=== PATIENT | female | born 1955 | race Caucasian/White ===

== ENCOUNTER 2017-08-02 16:32 | Emergency (ER) | payer BC ==
--- NOTE | 2017-08-02 17:49 | ER Document Report ---
ED Medical Screen (RME) - General TRAVEL OUTSIDE OF THE [place] IN LAST 30 DAYS: No <NILSONNANNETTE Dick - Last Filed: 08/02/17 17:44> - General Information source: Patient <CLAUS FRANZ - Last Filed: 08/02/17 17:55> - General Chief Complaint: Syncope Stated Complaint: FALL,LEG PAIN Time Seen by Provider: 08/02/17 17:35 Notes: Patient presents for chief concern of being found on the ground earlier this morning approximately 6 AM by her . He heard her snoring in the family room and states that it was hard to arouse her. Apparently, EMS was called and performed a stroke scale which was negative. She presents to the emergency department this afternoon due to concerns of amnesia events she does not remember going into the room last night. The last thing she remembers is going to the restroom. She also had an amnesia event approximately June 13 when they were driving from [place] as they recently moved. No recent illnesses cough congestion fevers chest pain or shortness of breath. She does have a history of arthritis in her knees and states that her knees been hurting more than normal. She also normally gets cortisone shots every 3 months and her last shot was in April of last year. No history of heart attack or stroke. Of note, she does take Ambien on a daily basis. No history of dementia (NANNETTE DEVINE) - Related Data Allergies/Adverse Reactions: aspirin Allergy (Severe, Verified 08/02/17 17:18) Shortness of Breath Past Medical History - Social History Chew tobacco use (# tins/day): No Frequency of alcohol use: None Drug Abuse: None Renal/ Medical History: Denies: Hx Peritoneal Dialysis <NANNETTE DEVINE - Last Filed: 08/02/17 17:44> - General Information source: Patient - Social History Chew tobacco use (# tins/day): No Frequency of alcohol use: None Drug Abuse: None <MARIA M,CLAUS - Last Filed: 08/02/17 17:55> Review of Systems - Review of Systems Respiratory: See HPI. denies: Cough Gastrointestinal: See HPI. denies: Abdominal pain Genitourinary: See HPI. denies: Dysuria Musculoskeletal: See HPI, Joint pain - bilateral knees for which she usually get cortisone Neurological/Psychological: See HPI, Other - temporary amnesia <CLAUS FRANZ - Last Filed: 08/02/17 17:55> Physical Exam - General General appearance: Appears well, Alert In distress: None - Respiratory Respiratory status: No respiratory distress - Extremities General upper extremity: Normal inspection, Normal ROM General lower extremity: Tender, Normal ROM - Neurological Neuro grossly intact: Yes Cognition: Normal Orientation: AAOx4 [place] Coma Scale Verbal: Oriented [place] Coma Scale Motor: Obeys Commands Speech: Normal Cranial nerves: Normal Cerebellar coordination: Normal Motor strength normal: LUE, RUE, LLE, RLE Additional motor exam normals: Equal coordinating producer - Psychological Associated symptoms: Normal affect, Normal mood - Skin Skin Temperature: Warm Skin Moisture: Dry Skin Color: Normal <CLAUS FRANZ - Last Filed: 08/02/17 17:55> - Vital signs Vitals: Temp Pulse BP Pulse Ox 98.1 F 123 H 137/81 H 96 08/02/17 16:41 08/02/17 16:41 08/02/17 16:41 08/02/17 16:41 - Vital Signs Vital signs: Temp Pulse Resp BP Pulse Ox 98.1 F 123 H 137/81 H 96 08/02/17 16:41 08/02/17 16:41 08/02/17 16:41 08/02/17 16:41 Scribe Documentation - Scribe Written by Dionne:: Dionne Lloyd 08/02/17 0562 acting as scribe for :: Nilson <CLAUS FRANZ - Last Filed: 08/02/17 17:55>
[2017-08-02 18:15] LABS: ABSOLUTE EOSINOPHILS # (AUTO) 0.1 10^3/uL (0.0-0.6); ABSOLUTE LYMPHOCYTES (AUTO) 1.8 10^3/uL (0.5-4.7); ABSOLUTE MONOCYTES (AUTO) 0.7 10^3/uL (0.1-1.4); ABSOLUTE NEUT (AUTO) 6.5 10^3/uL (1.7-8.2); BASOPHILS % (AUTO) 0.5 % (0-2); EOSINOPHILS % (AUTO) 0.7 % (0-6); HEMATOCRIT 38.8 % (36.0-47.0); HEMOGLOBIN 12.2 g/dL (12.0-15.5); LYMPHOCYTES % (AUTO) 19.5 % (13-45); MEAN CORPUSCULAR HEMOGLOBIN 25.2 pg (27.0-33.4); MEAN CORPUSCULAR HGB CONC 31.4 g/dL (32.0-36.0); MEAN CORPUSCULAR VOLUME 80 fl (80-97); MONOCYTES % (AUTO) 7.7 % (3-13); PLATELET COUNT 223 10^3/uL (150-450); RED BLOOD COUNT 4.83 10^6/uL (3.72-5.28); RED CELL DISTRIBUTION WIDTH 16.2 % (11.5-14.0); SEGMENTED NEUTROPHILS % (AUTO) 71.6 % (42-78); TOTAL CELLS COUNTED % (AUTO) 100 %; WHITE BLOOD COUNT 9.1 10^3/uL (4.0-10.5)
[2017-08-02 18:17] LABS: APPEARANCE,URINE CLEAR; BILIRUBIN,URINE NEGATIVE (NEGATIVE); COLOR,URINE YELLOW; GLUCOSE, URINE NEGATIVE (NEGATIVE); KETONES,URINE NEGATIVE (NEGATIVE); LEUKOCYTE ESTERASE,URINE NEGATIVE (NEGATIVE); NITRITE,URINE NEGATIVE (NEGATIVE); PROTEIN,URINE NEGATIVE (NEGATIVE); URINE SPECIFIC GRAVITY 1.017
[2017-08-02] MEDS ORDERED: NORMAL SALINE 1000 ML 1,000 ML IV ONE (18:28)
[2017-08-02 18:30] LABS: ALANINE AMINOTRANSFERASE 34 U/L (9-52); ALBUMIN 4.3 g/dL (3.5-5.0); ALKALINE PHOSPHATASE 124 U/L (38-126); ANION GAP 12 (5-19); ASPARTATE AMINO TRANSFERASE 45 U/L (14-36); BILIRUBIN,DIRECT 0.1 mg/dL (0.0-0.4); BILIRUBIN,TOTAL 0.6 mg/dL (0.2-1.3); BLOOD UREA NITROGEN 19 mg/dL (7-20); CALCIUM 9.5 mg/dL (8.4-10.2); CARBON DIOXIDE 25 mmol/L (22-30); CHLORIDE 103 mmol/L (98-107); GLUCOSE 89 mg/dL (75-110); POTASSIUM 4.4 mmol/L (3.6-5.0); SODIUM 139.9 mmol/L (137-145); TOTAL PROTEIN 6.4 g/dL (6.3-8.2)
--- NOTE | 2017-08-02 18:36 | RADIOLOGY REPORT (SQ) ---
EXAM DESCRIPTION: CT HEAD WITHOUT COMPLETED DATE/TIME: 08/02/2017 6:28 pm REASON FOR STUDY: amensia events COMPARISON: None. TECHNIQUE: Axial images acquired through the brain without intravenous contrast. Images reviewed wi th bone, brain and subdural windows. Images stored on PACS. All CT scanners at this facility use dose modulation, iterative reconstruction, and/or weight based d osing when appropriate to reduce radiation dose to as low as reasonably achievable (ALARA). [facility]: Dose Right [facility]: CareDose [facility]: Dose Right [facility]: Teradose 4D [facility]: [employer] RADIATION DOSE: CT Rad equipment meets quality standard of care and radiation dose reduction techniq ues were employed. CTDIvol: 64.6 mGy. DLP: 1034 mGy-cm. mGy. LIMITATIONS: None. FINDINGS: VENTRICLES: Normal size and contour. CEREBRUM: No masses. No hemorrhage. No midline shift. No evidence for acute infarction. Normal gra y/white matter differentiation. Age-appropriate white matter. CEREBELLUM: No masses. No hemorrhage. No alteration of density. No evidence for acute infarction. EXTRAAXIAL SPACES: No fluid collections. No masses. ORBITS AND GLOBE: No intra- or extraconal masses. Normal contour of globe without masses. CALVARIUM: No fracture. PARANASAL SINUSES: No fluid or mucosal thickening. SOFT TISSUES: No mass or hematoma. OTHER: No other significant finding. IMPRESSION: No acute intracranial findings. EVIDENCE OF ACUTE STROKE: NO. COMMENT: Quality ID # [id number]: Final reports with documentation of one or more dose reduction techniques (e.g., Automated exposure control, adjustment of the mA and/or kV according to patient size, use of iterative reconstruction technique) TECHNICAL DOCUMENTATION: JOB ID: [id number] [place]-72 2010 [employer]- All Rights Reserved Reading location - IP/workstation name: [email or web address]
[2017-08-02] MEDS ORDERED: LIDOCAINE 5% (700 MG) TRANSDERMAL ADH..PATCH TP ONE (19:17)
[2017-08-02] MEDS ORDERED: IBUPROFEN 600 MG TABLET PO ONE (19:17)
[2017-08-02] MEDS ORDERED: ACETAMINOPHEN 325 MG TABLET PO ONE (19:17)
--- NOTE | 2017-08-02 19:21 | ER Document Report ---
ED General - General Chief Complaint: Syncope Stated Complaint: FALL,LEG PAIN Time Seen by Provider: 08/02/17 17:35 Notes: Patient is a 62-year-old female with past medical history of morbid obesity, chronic gait instability, who presents for chief concern of being found on the ground earlier this morning approximately 6 AM by her . He heard her snoring in the family room and states that it was hard to arouse her. Apparently, EMS was called and performed a stroke scale which was negative. She presents to the emergency department this afternoon due to concerns of amnesia to the events of last night. Patient states that she has had very similar symptoms in the past secondary to Ambien including an episode early in June when they moved. The patient denies any significant pain except to her left knee to which she notes a severe, constant, aching pain which is worse than her baseline pain in the knee. States the pain is worsened by moving the knee. She states she took Tylenol with codeine at home and it did improve the pain that medication has since worn off. Patient is unsure whether or not she hit her head but she denies any headache, neck pain, focal weakness or numbness , or confusion at this time. Her at the bedside states that she is currently acting at her baseline. Patient does note a history of tachycardia baseline. TRAVEL OUTSIDE OF THE [place] IN LAST 30 DAYS: No - Related Data Allergies/Adverse Reactions: aspirin Allergy (Severe, Verified 08/02/17 17:18) Shortness of Breath Past Medical History - General Information source: Patient - Social History Smoking Status: Never Smoker Chew tobacco use (# tins/day): No Frequency of alcohol use: None Drug Abuse: None Lives with: Spouse/Significant other Family History: Reviewed & Not Pertinent Patient has suicidal ideation: No Patient has homicidal ideation: No Renal/ Medical History: Denies: Hx Peritoneal Dialysis Past Surgical History: Reports: Hx Abdominal Surgery - hernia repair, gastric bypass, Hx Cholecystectomy Review of Systems - Review of Systems Notes: Constitutional: Negative for fever. Eyes: Negative for visual changes. ENT: Negative for facial injury Cardiovascular: Negative for chest injury. Respiratory: Negative for shortness of breath. Gastrointestinal: Negative for abdominal injury. Genitourinary: Negative for genital injury Musculoskeletal: Positive for bilateral knee pain Skin: Positive for bruising Neurological: Positive for head injury. Physical Exam - Vital signs Vitals: Temp Pulse BP Pulse Ox 98.1 F 123 H 137/81 H 96 08/02/17 16:41 08/02/17 16:41 08/02/17 16:41 08/02/17 16:41 Interpretation: Tachycardic Notes: PHYSICAL EXAMINATION: GENERAL: Well-appearing, no acute distress. HEAD: Atraumatic, normocephalic. EYES: Pupils equal round and reactive to light, extraocular movements intact, sclera anicteric, conjunctiva are normal. ENT: nares patent, no oral pharyngeal trauma. No hemotympanum, no Saucedo's sign , no raccoon eyes. NECK: No midline cervical spine tenderness. Patient able to move their head to 45 bilaterally without any discomfort. LUNGS: Breath sounds clear to auscultation bilaterally and equal. No wheezes rales or rhonchi. HEART: Regular rate and rhythm without murmurs. CHEST WALL: No ecchymosis over the chest wall. ABDOMEN: Soft, nontender, normoactive bowel sounds. No guarding, no rebound. No known EXTREMITIES: Normal range of motion, no pitting or edema. Bruising along the medial aspect of the bilateral knees worse on the left. no long bone deformities. BACK: No midline spinal tenderness, step-offs, or deformities. NEUROLOGICAL: Face symmetric. Tongue protrudes midline. Extraocular motions intact. Pupils are 2 mm and equally reactive. Normal speech. 5 out of 5 strength in both the distal and proximal upper and lower extremities bilaterally. Sensation is grossly intact throughout. Finger to nose testing normal. Pronator drift normal. PSYCH: Moderately anxious SKIN: Warm, Dry, normal turgor, ecchymosis over the bilateral forearms and bilateral medial knees Course - Re-evaluation Re-evalutation: 08/02/17 19:21 Patient presents with signs and symptoms most consistent with ingestion of zolpidem. Patient has had similar adverse reactions to this medication in the past did take this medication last evening prior to being found in the floor and confused earlier today. She presents due to ongoing pain in her bilateral lower extremities specifically in the knees worse on the left versus the right. He notes that this feels similar to her chronic pain and feels that it was exacerbated likely from her fall. She has no deformity or limited range of motion. X-ray is negative for any acute fracture or dislocation. A CT of the head was obtained in triage and is noted to be unremarkable. Screening laboratories are also unremarkable. Patient's vitals were noted to be within normal limits with exception of tachycardia which appeared to be most notable and patient was in pain as when she was trying to shift her knees around the bed when I was in the examination room her heart rate from 103-143. Will provide analgesia and IV fluids. I do not suspect any acute life-threatening pathology as the etiology of her presentation today. Specifically I do not suspect an acute stroke, TIA, or abdominal pathology, [place], acute pulmonary embolus, or aortic dissection. I do not suspect any long bone fractures at this point based on exam and history. At this time will discharge with return precautions and follow-up recommendations. Verbal discharge instructions given a the bedside and opportunity for questions given. Medication warnings reviewed. Patient is in agreement with this plan and has verbalized understanding of return precautions and the need for primary care follow-up in the next 24-72 hours. - Vital Signs Vital signs: Temp Pulse Resp BP Pulse Ox 98.1 F 112 H 18 124/52 L 98 08/02/17 16:41 08/02/17 21:05 08/02/17 21:05 08/02/17 21:05 08/02/17 21:05 - Laboratory Result Diagrams: 08/02/17 18:00 08/02/17 18:00 Laboratory results interpreted by me: 08/02/17 08/02/17 08/02/17 18:00 18:00 18:00 MCH 25.2 L MCHC 31.4 L RDW 16.2 H AST 45 H Urine Urobilinogen 2.0 H - Diagnostic Test Radiology reviewed: Image reviewed, Reports reviewed Radiology results interpreted by me: 08/02/17 19:23 CT head: No acute intracranial bleed - EKG Interpretation by Me Additional EKG results interpreted by me: 08/02/17 19:24 Sinus tachycardia. Rate 114. No ST elevations or depressions. QTC 414. Discharge - Discharge Clinical Impression: Traumatic ecchymosis of multiple sites Adverse drug reaction Qualifiers: Encounter type: initial encounter Qualified Code(s): T88.7XXA - Unspecified adverse effect of drug or medicament, initial encounter Head trauma Qualifiers: Encounter type: initial encounter Qualified Code(s): S09.90XA - Unspecified injury of head, initial encounter Bilateral knee pain Qualifiers: Chronicity: chronic Qualified Code(s): M25.561 - Pain in right knee Condition: Good Disposition: HOME, SELF-CARE Additional Instructions: Please discontinue the use of Ambien as this is likely the etiology of what happened last evening. The CT scan of your head is normal as are your labs. For your pain: Take ibuprofen 600 mg and acetaminophen 1000 mg every 6 hours together as needed for pain. You may also apply ice to your knees as needed for pain. Return if you have worsening of your pain, persistent vomiting, confusion, weakness, numbness, or any other symptoms that are worrisome to you.
[2017-08-02] MEDS ORDERED: MORPHINE SULFATE IR 15 MG TABLET PO ONE (20:04)
--- NOTE | 2017-08-02 20:14 | RADIOLOGY REPORT (SQ) ---
EXAM DESCRIPTION: KNEE LEFT 3 VIEWS COMPLETED DATE/TIME: 08/02/2017 7:56 pm REASON FOR STUDY: fall, pain COMPARISON: None. NUMBER OF VIEWS: Three views. TECHNIQUE: AP, lateral, and sunrise patella radiographic images acquired of the left knee. LIMITATIONS: None. FINDINGS: MINERALIZATION: Normal. BONES: No acute fracture or dislocation. Moderate tricompartmental degenerative changes. . JOINT: No effusion. SOFT TISSUES: No significant soft tissue swelling. No radio-opaque foreign body. OTHER: No other significant finding. IMPRESSION: No acute fracture or dislocation. TECHNICAL DOCUMENTATION: JOB ID: [id number] [place]-72 2010 [employer]- All Rights Reserved Reading location - IP/workstation name: [email or web address]
[2017-08-02 21:05] VITALS: BP 124/52
--- NOTE | 2017-08-02 21:21 | EKG REPORT ---
SEVERITY:- ABNORMAL ECG - SINUS TACHYCARDIA LAD. CONSIDER ANTERIOR INFARCT : Confirmed by: Mike Pascual MD 02-Aug-2017 21:19:52
== END 2017-08-02 21:05 | disposition home or self-care (01) ==
LOC: ER 16:32
DX: S80.02XA Contusion of left knee, initial encounter (principal); S80.01XA Contusion of right knee, initial encounter; S09.90XA Unspecified injury of head, initial encounter; T88.7XXA Unspecified adverse effect of drug or medicament, initial encounter; W19.XXXA Unspecified fall, initial encounter
CPT/HCPCS: 93005; 99284; 96360; 36415; 83735; 84443; 85025; 80053; 81001; 84484; 73562; 70450; 93010; J7030

== ENCOUNTER 2020-02-23 10:39 | Day surgery (SDC) | payer MEDICARE, OTHER ==
[~2020-02-23 10:39] MED LIST: CHONDR SU A NA/HYALUR INTRAOC KIT (SURGICARE) ONE; EPINEPHRINE INJ/PF 1 MG/1 ML AMPULE ONE; FENTANYL CITRATE INJ/PF 100 MCG/2 ML AMPUL ONE; KETOROLAC TROMETHAMINE 0.45% 4 DROP/0.4 ML DROPERETTE OS PRN; LIDOCAINE 1%/PHENYLEPHRINE 1.5% 0.8 ML SYRINGE ONE; MIDAZOLAM 2 MG/2 ML INJ ONE; ONDANSETRON HCL INJ/PF 4 MG/2 ML SDV ONE; TRYPAN BLUE 0.06 % OPH SOLN 0.5 ML DISP.SYRIN ONE
[2020-02-23] MEDS: TETRACAINE HCL 0.5% OPH SOLN 4 ML OS PRN ×4 (11:22→12:10)
[2020-02-23] MEDS: TROPICAMIDE 1% OPH SOLN 15 ML OS PRN ×3 (11:22→11:34)
[2020-02-23] MEDS: BESIFLOXACIN HCL 0.6% OPH SUSP 5 ML BOTTLE OS PRN ×4 (11:22→12:34)
[2020-02-23] MEDS: CYCLOPENTOLATE 0.2%/PHENYLEPHRINE 1% OPH SOLN 2 ML OS PRN ×3 (11:22→11:34)
[2020-02-23] MEDS ORDERED: CHONDR SU A NA/HYALUR SOD 0.5 ML DISP.SYRIN ONE (12:26)
[2020-02-23] MEDS: PREDNISOLONE ACETATE 1% OPH SUSP 5 ML OS PRN ×2 (12:34)
[2020-02-23] MEDS: DORZOLAMIDE HCL 2%/TIMOLOL MALEAT 0.5% OPH SOLN 10 ML OS PRN ×2 (12:34)
[2020-02-23] MEDS ORDERED: MIDAZOLAM 2 MG/2 ML INJ ONE (12:40)
--- NOTE | 2020-02-23 13:49 | Operative Report ---
Operative Report-[facility] Operative Report: DATE OF SURGERY: 02/23/2020 PREOPERATIVE DIAGNOSIS: Other cataracts, left eye POSTOPERATIVE DIAGNOSIS: Other cataract, left eye OPERATION: Complex cataract extraction with insertion of an IOL of the left eye with use of trypan blue dye due to dense cortical spoking. 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 First a paracentesis blade was used to make a side-port incision. Viscoelastic was used to inflate the anterior chamber. Next a 2.4 mm incision was made with a 2.4 mm blade, clear corneal temporarily. The anterior capsule was stained with trypan blue dye due to dense cortical spoking A continuous capsulorrhexis was made using a cystotome and Utrata forceps. Following this hydrodissection was carried out to make the lens fully loose and mobile and it was rotated 90 degrees. Following this, a divide and conquer technique was used to phacoemulsify the lens. The remaining cortex was removed with an irrigation/aspiration. Provisc was instilled into the capsular bag to inflate the bag.The intraocular lens was placed. The remaining viscoelastic material was removed with irrigation/aspiration. Following this, the incision was found to be watertight. Besivance and Cosopt was instilled into the eye and a protective shield was placed over the eye. The patient was returned to the postoperative recovery in a stable condition.
== END 2020-02-23 13:14 ==
LOC: SC 10:39
PROVIDERS: ATTEND Internal Medicine
DX: H25.89 Other age-related cataract (principal); H35.342 Macular cyst, hole, or pseudohole, left eye; H18.613 Keratoconus, stable, bilateral; M19.90 Unspecified osteoarthritis, unspecified site; Z79.899 Other long term (current) drug therapy; Z80.9 Family history of malignant neoplasm, unspecified; Z83.3 Family history of diabetes mellitus
CPT/HCPCS: 66982; V2632; J2250; J3490 ×5; A9270; J0171; J3010; J2405; 142